=== PATIENT | female | born 1975 | race Caucasian/White ===

== ENCOUNTER 2020-05-30 11:30 | Emergency (ER) | payer BC ==
[~2020-05-30] VITALS: Ht 154.9 cm; Wt 64.2 kg
[~2020-05-30 11:30] MED LIST: CALC65TA; CETI-85 PO; CHRO1TAB7 PO; ESTR8.1S TP; IBUP-1984 PO; NORCO10T PO; PENT100C8 PO; WALKERFR
[2020-05-30 13:07] LABS: BASOPHILS # (AUTO) 0.1 X10'3 (0-0.2); BASOPHILS % (AUTO) 0.6 % (0-1); EOSINOPHILS # (AUTO) 0.1 X10'3 (0-0.9); EOSINOPHILS % (AUTO) 1.5 % (0-6); HEMATOCRIT 40.5 % (35.0-45.0); HEMOGLOBIN 13.5 g/dl (12.0-16.0); LYMPHOCYTES # (AUTO) 1.9 X10'3 (1.1-4.8); LYMPHOCYTES % (AUTO) 22.3 % (21-51); MEAN CORPUSCULAR HEMOGLOBIN 31.3 PG (27.0-31.0); MEAN CORPUSCULAR HGB CONC 33.4 g/dL (33.0-36.5); MEAN CORPUSCULAR VOLUME 93.8 FL (78-98); MEAN PLATELET VOLUME 7.6 FL (7.4-10.4); MONOCYTES # (AUTO) 0.7 X10'3 (0-0.9); MONOCYTES % (AUTO) 8.4 % (2-12); NEUTROPHILS # (AUTO) 5.9 X10'3 (1.8-7.7); NEUTROPHILS % (AUTO) 67.2 % (42-75); PLATELET COUNT 337 X10'3 (140-440); RED BLOOD COUNT 4.31 X10'6 (4.20-5.60); RED CELL DISTRIBUTION WIDTH 13.2 % (11.5-14.5); WHITE BLOOD COUNT 8.7 X10'3 (4.5-11.0)
[2020-05-30 13:18] LABS: ALANINE AMINOTRANSFERASE 60 U/L (12-78); ALBUMIN 3.7 G/DL (3.4-5.0); ALKALINE PHOSPHATASE 57 IU/L (46-116); ANION GAP 9 (8-16); ASPARTATE AMINO TRANSFERASE 39 U/L (10-37); BILIRUBIN,TOTAL 0.2 MG/DL (0.1-1.0); BLOOD UREA NITROGEN 9 MG/DL (7-18); BUN/CREATININE RATIO 11.4 (6.6-38.0); CALCIUM 9.3 MG/DL (8.5-10.1); CHLORIDE 103 MMOL/L (99-107); CREATININE 0.79 MG/DL (0.40-0.90); GLUCOSE 96 MG/DL (70-104); POTASSIUM 3.7 MMOL/L (3.5-5.1); SODIUM 139 MMOL/L (135-145); TOTAL CARBON DIOXIDE 27.1 MMOL/L (24-32); TOTAL PROTEIN 7.5 G/DL (6.4-8.2); eGFR 78 ML/MIN
[2020-05-30] MEDS ORDERED: ketorolac trometh. 30mg/ml inj. IV ONE (13:35)
[2020-05-30] MEDS ORDERED: normal saline 1000ML IV soln IVB ONE (13:35)
[2020-05-30 14:02] LABS: D-DIMER 0.29 MG/L FEU (0-0.50)
[2020-05-30] MEDS ORDERED: HYDR-3965 PO (14:25)
[2020-05-30 14:58] VITALS: BP 131/95
== END 2020-05-30 14:46 | disposition home or self-care (01) ==
LOC: ER 11:32
DX: I10 Essential (primary) hypertension (principal); G89.18 Other acute postprocedural pain; R10.9 Unspecified abdominal pain; G43.909 Migraine, unspecified, not intractable, without status migrainosus; G89.29 Other chronic pain; Z90.710 Acquired absence of both cervix and uterus; Z72.89 Other problems related to lifestyle; Z88.5 Allergy status to narcotic agent; Z79.899 Other long term (current) drug therapy
CPT/HCPCS: 36415; 71045; 80053; 83880; 84484; 85025; 85379; 93005; 96374; 99285; J1885; J7030

== ENCOUNTER 2021-03-08 10:59 | Emergency (ER) | payer BC ==
[~2021-03-08] VITALS: Ht 152.4 cm; Wt 61.4 kg
[2021-03-08 11:47] LABS: ALANINE AMINOTRANSFERASE 27 U/L (12-78); ALBUMIN/GLOBULIN RATIO 1.1 (1.1-1.5); ALKALINE PHOSPHATASE 55 IU/L (46-116); ANION GAP 9 (8-16); ASPARTATE AMINO TRANSFERASE 16 U/L (10-37); BILIRUBIN,TOTAL 0.2 MG/DL (0.1-1.0); BLOOD UREA NITROGEN 16 MG/DL (7-18); BUN/CREATININE RATIO 18.4 (6.6-38.0); CALCIUM 9.1 MG/DL (8.5-10.1); CHLORIDE 105 MMOL/L (99-107); CREATININE 0.87 MG/DL (0.40-0.90); GLUCOSE 108 MG/DL (70-104); POTASSIUM 4.1 MMOL/L (3.5-5.1); SODIUM 141 MMOL/L (135-145); TOTAL CARBON DIOXIDE 27.2 MMOL/L (24-32); TOTAL PROTEIN 7.7 G/DL (6.4-8.2); eGFR 70 ML/MIN
[2021-03-08 11:54] LABS: D-DIMER < 0.19 MG/L FEU (0-0.50); LIPASE 179 U/L (73-393); MAGNESIUM 2.3 MG/DL (1.5-2.4)
[2021-03-08] MEDS ORDERED: ONDA4TAB12 PO (12:19)
[2021-03-08] MEDS ORDERED: CYCL-1 PO (12:19)
[2021-03-08] MEDS ORDERED: orphenadrine citrate 60mg/2ml inj. IM ONE (12:25)
[2021-03-08] MEDS ORDERED: ketorolac trometh inj. 60 MG/2 ML VIAL IM ONE (12:25)
[2021-03-08 12:37] VITALS: BP 141/92
== END 2021-03-08 12:38 | disposition home or self-care (01) ==
LOC: ER 11:00
DX: M54.10 Radiculopathy, site unspecified (principal); M79.601 Pain in right arm; M54.2 Cervicalgia; R07.89 Other chest pain; R06.02 Shortness of breath; R11.0 Nausea; G43.909 Migraine, unspecified, not intractable, without status migrainosus; G89.29 Other chronic pain; Z90.710 Acquired absence of both cervix and uterus; Z98.890 Other specified postprocedural states; Z72.89 Other problems related to lifestyle; Z88.8 Allergy status to other drugs, medicaments and biological substances; Z79.899 Other long term (current) drug therapy
CPT/HCPCS: 36415; 71045; 80053; 83690; 83735; 83880; 84484; 85379; 93005; 96372; 99285; J1885; J2360